=== PATIENT | female | born 1995 ===

== ENCOUNTER 2022-11-30 08:49 | Emergency (ER) | payer OTHER, SELFPAY ==
[2022-11-30] MEDS ORDERED: ACETAMINOPHEN 500 MG TAB ONE (09:19)
--- NOTE | 2022-11-30 10:42 | EDPHYS ---
Physician Documentation [facility] Name: Leslie Torres Age: 27 yrs Sex: Female : 1995 Arrival Date: 11/30/2022 Time: 08:49 Bed 20 Private MD: ED Physician Jaun Fuentes HPI: 11/30 09:10 This 27 yrs old Unknown Female presents to ER via Ambulatory with complaints of Foot cp Injury. 09:10 The patient presents with an injury, pain, that is acute. The complaints affect the cp heel of right foot. 09:10 Context: Mechanism of Injury: direct blow the patient can fully bear weight, the cp patient is able to ambulate, with moderate difficulty, struck heel with trash canister while moving canister. Onset: The symptoms/episode began/occurred yesterday. Associated signs and symptoms: The patient has no apparent associated signs or symptoms. CRM ARCHITECT: 10:56 LMP 11/26/2022 db Historical: - Allergies: 09:08 No Known Allergies; aa5 - PMHx: 09:08 Asthma; aa5 - PSHx: 09:08 R arm; Tonsillectomy; Adenoid excision; aa5 - Immunization history:: Adult Immunizations unknown. - Social history:: Smoking status: Patient denies any tobacco usage or history of. ROS: 09:05 MS/extremity: Positive for pain, swelling, tenderness, of the posterior aspect right cp heel. 09:05 Constitutional: Negative for fever. cp 09:05 Neck: Negative for pain with movement, pain at rest. 09:05 Back: Negative for pain at rest, pain with movement. Exam: 09:10 Constitutional: The patient appears in no acute distress, alert, awake, well developed, cp well nourished. 09:10 Musculoskeletal/extremity: Extremities: grossly normal except: noted in the right heel cp of foot: pain, tenderness. 09:10 Skin: cellulitis, is not appreciated, no rash present. Vital Signs: 09:00 BP 126 / 71; Pulse 62; Resp 16 S; Temp 98.2(O); Pulse Ox 100% on R/A; Weight 97.52 kg aa5 (R); Height 5 ft. 10 in. (R); 10:57 BP 112 / 85; Pulse 60; Resp 18; Pulse Ox 100% on R/A; db 09:00 Body Mass Index 30.85 (97.52 kg, 177.8 cm) aa5 MDM: 08:55 Patient medically screened. cp 10:00 Differential diagnosis: fracture, contusion. cp 10:15 Independent interpretation of the following test(s) in the Emergency Department X-Ray: cp My interpretation is images of right heel negative for fracture. 10:41 Data reviewed: vital signs, nurses notes, radiologic studies, plain films. cp 10:41 Counseling: I had a detailed discussion with the patient and/or guardian regarding: the cp historical points, exam findings, and any diagnostic results supporting the discharge/admit diagnosis, radiology results. Response to treatment: the patient's symptoms have markedly improved after treatment, and as a result, I will discharge patient. 11/30 09:07 Order name: XRAY Heel Os Calcis (calcaneus); Complete Time: 10:57 cp 11/30 10:57 Interpretation: Report reviewed. cp 11/30 10:41 Order name: Crutches; Complete Time: 10:45 cp Administered Medications: 09:12 Drug: Acetaminophen PO 1000 mg Route: PO; kc6 11:01 Follow up: Response: No adverse reaction db 10:44 Drug: Ibuprofen PO 800 mg Route: PO; db 11:01 Follow up: Response: No adverse reaction db Disposition: 12:10 Co-signature as Attending Physician, Jaun Fuentes MD I agree with the assessment and kdr plan of care. Disposition Summary: 11/30/22 10:42 Discharge Ordered Location: Home cp Problem: new cp Symptoms: have improved cp Condition: Stable cp Diagnosis - Contusion of right foot, initial encounter - right heel cp Followup: cp - With: Private Physician - When: 2 - 3 days - Reason: Worsening of condition Discharge Instructions: - Discharge Summary Sheet cp - Foot Contusion cp Forms: - Medication Reconciliation Form cp - Thank You Letter cp - Antibiotic Education cp - Prescription Opioid Use cp Prescriptions: - Ibuprofen 800 mg Oral Tablet - take 1 tablet by ORAL route every 8 hours As needed take with food; 30 tablet; cp Refills: 0, Product Selection Permitted Signatures: Dispatcher [employer] Jaun Figueroa MD MD kdr Calderon, Audri RN RN aa5 Ha Sousa PA PA cp Michelle Chavez RN RN kc6 Lesia Gonzalez, RN RN db
--- NOTE | 2022-11-30 10:42 | ER ---
Nurse's Notes [facility] Name: Leslie Torres Age: 27 yrs Sex: Female : 1995 Arrival Date: 11/30/2022 Time: 08:49 Bed 20 Private MD: Diagnosis: Contusion of right foot, initial encounter-right heel Presentation: 11/30 09:00 Chief complaint: Patient states: "I was taking the trash can out yesterday and I hit my aa5 heel with the full trash can". PT c/o pain to right heel. 09:00 Coronavirus screen: At this time, the client does not indicate any symptoms associated aa5 with coronavirus-19. Ebola Screen: Patient denies travel to an Ebola-affected area in the 21 days before illness onset. Initial Sepsis Screen: Does the patient meet any 2 criteria? No. Patient's initial sepsis screen is negative. Does the patient have a suspected source of infection? No. Patient's initial sepsis screen is negative. Risk Assessment: Do you want to hurt yourself or someone else? Patient reports no desire to harm self or others. Onset of symptoms was November 2022. 09:00 Acuity: EKTA 4 aa5 09:00 Method Of Arrival: Ambulatory aa5 Triage Assessment: 10:57 General: Appears in no apparent distress. comfortable, Behavior is calm, cooperative. db Musculoskeletal: Reports pain in right leg and right foot. Injury Description: Bruise sustained to right leg and right foot. 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 - Social history:: Smoking status: Patient denies any tobacco usage or history of. Screenin:59 [facility] ED Fall Risk Assessment (Adult) History of falling in the last 3 months, db including since admission Yes- single mechanical fall (1 pt) Confusion or Disorientation No (0 pts) Intoxicated or Sedated No (0 pts) Impaired Gait No (0 pts) Mobility Assist Device Used No (0 pt) Altered Elimination No (0 pt) Score/Fall Risk Level 0 - 2 = Low Risk Oriented to surroundings, Maintained a safe environment. Abuse screen: Denies threats or abuse. Denies injuries from another. Nutritional screening: No deficits noted. Tuberculosis screening: No symptoms or risk factors identified. Assessment: 09:35 Reassessment: Patient appears in no apparent distress at this time. Patient and/or db family updated on plan of care and expected duration. Pain level reassessed. Patient is alert, oriented x 3, equal unlabored respirations, skin warm/dry/pink. right ankle pain. Reassessment: neurovascular intact. General: Appears in no apparent distress. comfortable, Behavior is calm, cooperative. Pain: Complains of pain in right foot and right leg. Neuro: Level of Consciousness is awake, alert, obeys commands, Oriented to person, place, time, situation. 09:58 Reassessment: Patient appears in no apparent distress at this time. radiology is at bedside. Vital Signs: 09:00 BP 126 / 71; Pulse 62; Resp 16 S; Temp 98.2(O); Pulse Ox 100% on R/A; Weight 97.52 kg aa5 (R); Height 5 ft. 10 in. (R); 10:57 BP 112 / 85; Pulse 60; Resp 18; Pulse Ox 100% on R/A; db 09:00 Body Mass Index 30.85 (97.52 kg, 177.8 cm) aa ED Course: 08:52 Patient arrived in ED. im 08:53 Ha Sousa PA is PHCP. cp 08:53 Jaun Fuentes MD is Attending Physician. cp 09:00 Arm band placed on. aa 09:07 Triage completed. aa5 09:23 Lesia Gonzalez, AMY is Primary Nurse. db 10:21 XRAY Heel Os Calcis (calcaneus) In Process Unspecified. EDMS 10:55 Crutch training done. db 10:58 Patient has correct armband on for positive identification. Bed in low position. Call db light in reach. Side rails up X 1. Warm blanket given. 10:58 No provider procedures requiring assistance completed. Patient did not have IV access db during this emergency room visit. Administered Medications: 09:12 Drug: Acetaminophen PO 1000 mg Route: PO; kc6 11:01 Follow up: Response: No adverse reaction db 10:44 Drug: Ibuprofen PO 800 mg Route: PO; db 11:01 Follow up: Response: No adverse reaction db Medication: 10:58 VIS not applicable for this client. db Outcome: 10:42 Discharge ordered by . cp 10:58 Discharged to home ambulatory, with crutches. db 10:58 Condition: stable 10:58 Discharge instructions given to patient, Instructed on discharge instructions, follow up and referral plans. Prescriptions given X 1. 11:01 Patient left the ED. db Signatures: Dispatcher [employer] EDTracy Pizano, RN RN aa5 Ha Sousa PA PA Michelle Ann RN RN kc6 Lesia Gonzalez, RN RN db Kathy Turner
[2022-11-30] MEDS ORDERED: IBUPROFEN 400 MG TAB ONE (10:51)
--- NOTE | 2022-11-30 10:53 | RAD REPORT ---
EXAM DESCRIPTION: RAD - Os Calcis (Calcaneus) Heel - 11/30/2022 10:19 am CLINICAL HISTORY: PAIN COMPARISON: No comparisons TECHNIQUE: Right calcaneus, 3 views. FINDINGS: No fracture, dislocation or periosteal reaction. Fused os trigonum. Minimal enthesopathy t hick changes at the Achillis attachment. No air or foreign body in the soft tissues. IMPRESSION: No acute abnormality of the right calcaneus. Chronic findings as above.
[2022-11-30 11:06] VITALS: TEMP 98.2; O2SAT 100
[2022-11-30 11:07] VITALS: BP 112/85
== END 2022-11-30 11:01 | disposition home or self-care (01) ==
LOC: ER 08:49
DX: S90.31XA Contusion of right foot, initial encounter (principal)
CPT/HCPCS: 73650; 99284